=== PATIENT | male | born 1960 | race Caucasian/White ===

== ENCOUNTER → 2017-05-25 | Outpatient (CLI) | payer BC ==
[2017-05-25 07:36] LABS: Basophils % (A) 1 %; Eosinophils # (A) 0.2 k/uL (0-0.7); Eosinophils % (A) 2 %; HCT 43.6 % (39.0-53.0); HGB 14.4 gm/dL (13.0-17.5); Lymphocytes # (A) 1.7 k/uL (1.0-4.8); Lymphocytes % (A) 28 %; MCH 31.1 pg (25.0-35.0); MCHC 33.1 g/dL (31.0-37.0); MCV 94.2 fL (80.0-100.0); Mean Platelet Volume 7.7; Monocytes # (A) 0.3 k/uL (0-1.0); Monocytes % (A) 5 %; Neutrophils # (A) 3.8 k/uL (1.3-7.7); Neutrophils % (A) 62 %; Platelet Count 267 k/uL (150-450); RBC 4.63 m/uL (4.30-5.90); RDW 13.5 % (11.5-15.5); WBC 6.1 k/uL (3.8-10.6)
[2017-05-25 10:43] LABS: ALT 26 U/L (21-72); AST 23 U/L (17-59); Albumin 4.2 g/dL (3.5-5.0); Alkaline Phosphatase 106 U/L (38-126); Anion Gap 12 mmol/L; Blood Urea Nitrogen 15 mg/dL (9-20); Calcium 9.8 mg/dL (8.4-10.2); Carbon Dioxide 27 mmol/L (22-30); Chloride 107 mmol/L (98-107); Cholesterol 190 mg/dL (<200); Glucose 93 mg/dL (74-99); HDL Cholesterol 59 mg/dL (40-60); LDL Cholesterol,Calculated 117 mg/dL (0-99); Potassium 4.8 mmol/L (3.5-5.1); Sodium 146 mmol/L (137-145); Total Bilirubin 0.4 mg/dL (0.2-1.3); Total Protein 7.1 g/dL (6.3-8.2); Triglycerides 71 mg/dL (<150)
[2017-05-25 11:13] LABS: Prostate Specific Antigen 1.74 ng/mL (0.00-4.00)
== END | disposition home or self-care (01) ==
LOC: LABWHC1 06:56
PROVIDERS: ATTEND Family Medicine
DX: Z00.00 Encounter for general adult medical examination without abnormal findings (principal); Z13.21 Encounter for screening for nutritional disorder; Z12.5 Encounter for screening for malignant neoplasm of prostate
CPT/HCPCS: 36415; 80053; 80061; 82306; 84153; 84443; 85025

== ENCOUNTER 2018-03-18 08:32 | Day surgery (SDC) | payer BC ==
[2018-03-16 10:26] VITALS: BMI 26.9
[~2018-03-18 08:32] MED LIST: LACTATED RINGERS 1,000 ML IV SCH
[2018-03-18 08:56] VITALS: RESP 18; TEMP 97.3
[2018-03-18] MEDS ORDERED: LIDOCAINE 1% 20 ML VIAL (10MG/ML) FOR IV START INTRADERMA ONE (08:56)
[2018-03-18] MEDS ORDERED: PROPOFOL 10 MG/ML 20 ML VIAL IV ONE (09:26)
--- NOTE | 2018-03-18 09:30 | P.GSHP ---
History of Present Illness H&P Date: 03/18/18 Chief Complaint: Colon cancer screening Patient here today for colonoscopy. He has a history of colon polyps. Last colonoscopy about 12 years ago. No bowel related complaints currently. No history of the family colon cancer. Past Medical History Additional Past Medical History / Comment(s): HEMORRHOIDS. History of Any Multi-Drug Resistant Organisms: None Reported Additional Past Surgical History / Comment(s): COLONOSCOPY. CERVICAL RECONSTRUCTION 2006. Past Anesthesia/Blood Transfusion Reactions: No Reported Reaction Smoking Status: Former smoker Past Alcohol Use History: Occasional Additional Past Alcohol Use History / Comment(s): SMOKED 15 YEARS, 1 PPD, QUIT . Past Drug Use History: None Reported - Past Family History Sister(s) Additional Family Medical History / Comment(s): HAD MASTECTOMY, HAD POS CA GENE , ? CA Medications and Allergies Home Medications Medication Instructions Recorded Confirmed Type No Known Home Medications 03/16/18 03/16/18 History Allergies Allergy/AdvReac Type Severity Reaction Status Date / Time No Known Allergies Allergy Verified 03/16/18 10:13 Surgical - Exam Vital Signs Temp Pulse Resp BP Pulse Ox 97.3 F L 70 18 147/78 97 03/18/18 08:54 03/18/18 08:54 03/18/18 08:54 03/18/18 08:54 03/18/18 08:54 Physical exam: General: Well-developed, well-nourished HEENT: Normocephalic, sclerae nonicteric Abdomen: Nontender, nondistended Extremities: No edema Neuro: Alert and oriented Assessment and Plan (1) Colon cancer screening Narrative/Plan: Will proceed with colonoscopy at this time Current Visit: Yes Status: Acute Code(s): Z12.11 - ENCOUNTER FOR SCREENING FOR MALIGNANT NEOPLASM OF COLON SNOMED Code(s): 229683634
--- NOTE | 2018-03-18 09:46 | P.PCN ---
Date of Procedure: 03/18/18 Procedure(s) Performed: PREOPERATIVE DIAGNOSIS: Colon cancer screening POSTOPERATIVE DIAGNOSIS: Normal exam PROCEDURE: Colonoscopy ANESTHESIA: MAC SURGEON: Oswald Franco M.D. SPECIMENS: None ENDOSCOPIC PROCEDURE: The patient was placed on the endoscopy table in the left decubitus position. The Olympus colonoscope was inserted into the anus and passed under direct visualization to the base of the cecum. The appendiceal orifice was visualized. From that point the scope was slowly withdrawn inspecting all surfaces carefully. There were no neoplastic inflammatory or polypoid lesions throughout the cecum, ascending, transverse, descending, sigmoid and rectum. There was no diverticulosis noted. Digital rectal examination was normal. The patient was taken to the recovery room in stable condition per anesthesia guidelines. RECOMMENDATIONS: Increase fiber. Follow-up colonoscopy 5-10 years.
[2018-03-18 10:36] VITALS: BP 112/71; PULSE 49
== END 2018-03-18 10:47 | disposition home or self-care (01) ==
LOC: ORWHC2ENDO 08:32
PROVIDERS: ATTEND Surgery
DX: Z12.11 Encounter for screening for malignant neoplasm of colon (principal); Z86.010 Personal history of colon polyps; Z87.891 Personal history of nicotine dependence
CPT/HCPCS: J2704; G0105; 45378

== ENCOUNTER 2018-05-29 16:39 | Emergency (ER) | payer BC ==
[2018-05-29 16:49] VITALS: TEMP 97.4
[2018-05-29] MEDS ORDERED: DIPH,PERTUS(ACELL)TETVAC-LF 0.5 ML VIAL IM ONE (16:58)
[2018-05-29] MEDS ORDERED: LIDOCAINE 1%-EPI 1:100,000 20 ML VIAL SQ STA (16:58)
--- NOTE | 2018-05-29 17:04 | ED ---
General Adult HPI - General Chief complaint: Wound/Laceration Stated complaint: Hand Lac Time Seen by Provider: 05/29/18 16:51 Source: patient Mode of arrival: wheelchair Limitations: no limitations - History of Present Illness Initial comments: Dictation was produced using [employer] dictation software. please excuse any grammatical, word or spelling errors. Chief Complaint: 57-year-old male presents with left hand laceration. History of Present Illness: Approximately 2 hours prior to arrival patient was working at home when he was trying to remove a metal plate from the wall. He states that the platelet sharp advised twisting it is sliced his left hand. On his way here patient had an episode of syncope. Patient denies any medical comorbidities. He does not remember when his last tetanus shot was. The ROS documented in this emergency department record has been reviewed and confirmed by me. Those systems with pertinent positive or negative responses have been documented in the HPI. All other systems are other negative and/or noncontributory. PHYSICAL EXAM: General Impression: Alert and oriented x3, not in acute distress HEENT: Normocephalic atraumatic, extra-ocular movements intact, pupils equal and reactive to light bilaterally, mucous membranes moist. Cardiovascular: Heart regular rate and rhythm, S1&S2 audible, no murmurs, rubs or gallops Chest: Lungs clear to auscultation bilaterally, no rhonchi, no wheeze, no rales Abdomen: Bowel sounds present, abdomen soft, non-tender, non-distended, no organomegaly Musculoskeletal: Pulses present and equal in all extremities, no peripheral edema Motor: no focal deficits noted Neurological: CN II-XII grossly intact, no focal motor or sensory deficits noted Skin: Intact with no visualized rashes Psych: Normal affect and mood Left hand: 6 cm laceration to the palm of the left hand extending from thumb to fifth digit, mild bleeding. ED course: 54-year-old male presents with left hand laceration. As upon arrival are within acceptable limits. Tetanus updated. X-rays obtained showing no acute processes. No foreign bodies. Laceration was repaired at bedside using lidocaine without epi. Patient tolerated procedures well. Instructed to keep sutures in for approximately 10-14 days. Told to return if he develops any signs of infection including worsening pain and redness or constitutional symptoms. Patient was sent with plan. Patient's episode of syncope likely related to vasovagal syncope she was monitored in the emergency department with library monitor showing no acute processes. Patient has no medical history. Patient advised to follow-up with PCP for syncope workup. - Related Data Home Medications Medication Instructions Recorded Confirmed No Known Home Medications 03/16/18 05/29/18 Allergies Allergy/AdvReac Type Severity Reaction Status Date / Time ampicillin Allergy Rash/Hives Verified 05/29/18 17:01 Review of Systems ROS Statement: Those systems with pertinent positive or pertinent negative responses have been documented in the HPI. ROS Other: All systems not noted in ROS Statement are negative. Past Medical History Additional Past Medical History / Comment(s): HEMORRHOIDS. History of Any Multi-Drug Resistant Organisms: None Reported Additional Past Surgical History / Comment(s): COLONOSCOPY. CERVICAL RECONSTRUCTION 2006. Past Anesthesia/Blood Transfusion Reactions: No Reported Reaction Smoking Status: Former smoker Past Alcohol Use History: Occasional Past Drug Use History: None Reported - Past Family History Sister(s) Additional Family Medical History / Comment(s): HAD MASTECTOMY, HAD POS CA GENE, ? CA General Exam Limitations: no limitations Course Vital Signs 05/29/18 16:47 Temperature 97.4 F L Pulse Rate 51 L Respiratory 18 Rate Blood Pressure 69/30 O2 Sat by Pulse 98 Oximetry Procedures - Laceration Laceration #1 Consent Obtained: verbal consent Indication: laceration Site: hand Description: linear Depth: simple, single layer Anesthetic Used: lidocaine 1% Anesthesia Technique: local infiltration Type of Sutures: nylon Size of Sutures: 4-0 Technique: simple, interrupted Patient Tolerated Procedure: well Disposition Clinical Impression: Laceration, Vasovagal syncope Disposition: HOME SELF-CARE Condition: Good Instructions (If sedation given, give patient instructions): Laceration (ED) Is patient prescribed a controlled substance at d/c from ED?: No Referrals: Andrade Hayes MD [Primary Care Provider] - 1-2 days Time of Disposition: 17:40
--- NOTE | 2018-05-29 17:31 | XR ---
Left hand HISTORY: Laceration 3 views of the left hand Bone mineralization, joint spaces and alignment are maintained. No fracture or dislocation. No radiop aque foreign body. IMPRESSION: No acute abnormalities evident
[2018-05-29 17:48] VITALS: BP 106/71; PULSE 56; RESP 16
[2018-05-29] MEDS ORDERED: Acetaminophen-Codeine 300-30mg TAB PO STA (17:48)
== END 2018-05-29 17:55 | disposition home or self-care (01) ==
LOC: EC 16:39
DX: S61.412A Laceration without foreign body of left hand, initial encounter (principal); Z23 Encounter for immunization; Z88.1 Allergy status to other antibiotic agents; Z87.891 Personal history of nicotine dependence; W26.8XXA Contact with other sharp object(s), not elsewhere classified, initial encounter
CPT/HCPCS: 12002; 90471; 90715; 99283

== ENCOUNTER → 2020-10-19 | Outpatient (CLI) | payer BC ==
--- NOTE | 2020-10-19 21:50 | MR ---
EXAMINATION TYPE: MR shoulder RT wo con DATE OF EXAM: 10/19/2020 COMPARISON: None HISTORY: Right shoulder pain x 3 years. Multiplanar multiecho imaging of the right shoulder with no contrast. The subscapularis tendon is intact. Biceps tendon appears intact. The glenoid dennis appear fairly nor mal. The supraspinatus tendon is intact. There is no retraction. I see no bony destructive process. Tita l head is intact. Glenohumeral joint appears anatomic. There is no subacromial impingement. IMPRESSION: Normal MR scan of the right shoulder. No evidence of rotator cuff tear.
== END | disposition home or self-care (01) ==
LOC: RADMRIMAIN 14:16
PROVIDERS: ATTEND Orthopaedic Surgery
DX: M25.511 Pain in right shoulder (principal)

== ENCOUNTER 2021-01-14 08:16 | Day surgery (SDC) | payer BC ==
[2021-01-09 14:38] VITALS: BMI 25.6
[~2021-01-14 08:16] MED LIST changes: +LIDOCAINE 1% (10MG/ML) FOR IV START INTRADERMA PRN
[2021-01-14] MEDS ORDERED: LACTATED RINGERS 1,000 ML IV ONE (08:45)
[2021-01-14 08:59] VITALS: TEMP 97.8
[2021-01-14] MEDS ORDERED: PROPOFOL 10 MG/ML 20 ML VIAL IV ONE (09:28)
[2021-01-14] MEDS ORDERED: LIDOCAINE 1% INJ 10MG/ML (20 ML MDV) ONE (09:28)
--- NOTE | 2021-01-14 09:34 | P.GSHP ---
History of Present Illness H&P Date: 01/14/21 Chief Complaint: Rectal bleeding 60-year-old male here today for colonoscopy with possible hemorrhoidal banding. Patient with frequent rectal bleeding. He feels a hemorrhoid that self reduces. Usually on the right-hand side. Last colonoscopy 3 years ago. No constipation . Past Medical History Additional Past Medical History / Comment(s): HEMORRHOIDS. History of Any Multi-Drug Resistant Organisms: None Reported Additional Past Surgical History / Comment(s): COLONOSCOPY. CERVICAL RECONSTRUCTION 2006. Past Anesthesia/Blood Transfusion Reactions: No Reported Reaction Smoking Status: Former smoker - Past Family History Sister(s) Additional Family Medical History / Comment(s): HAD MASTECTOMY, HAD POS CA GENE, ? CA Medications and Allergies Home Medications Medication Instructions Recorded Confirmed Type No Known Home Medications 03/16/18 01/09/21 History Allergies Allergy/AdvReac Type Severity Reaction Status Date / Time amoxicillin Allergy Rash/Hives Verified 01/09/21 14:32 ampicillin Allergy Rash/Hives Verified 01/09/21 14:32 Surgical - Exam Vital Signs Temp Pulse Resp BP Pulse Ox 97.8 F 78 18 137/78 98 01/14/21 08:58 01/14/21 08:58 01/14/21 08:58 01/14/21 08:58 01/14/21 08:58 Physical exam: General: Well-developed, well-nourished HEENT: Normocephalic, sclerae nonicteric Abdomen: Nontender, nondistended Extremities: No edema Neuro: Alert and oriented Assessment and Plan (1) Rectal bleeding Narrative/Plan: Will proceed with colonoscopy with possible hemorrhoidal banding. Risks of bleeding, infection, scarring, recurrence reviewed. Patient understands and wishes to proceed. Current Visit: Yes Status: Acute Code(s): K62.5 - HEMORRHAGE OF ANUS AND RECTUM SNOMED Code(s): 23311275
--- NOTE | 2021-01-14 09:53 | P.PCN ---
Date of Procedure: 01/14/21 Procedure(s) Performed: PREOPERATIVE DIAGNOSIS: Rectal bleeding POSTOPERATIVE DIAGNOSIS: Diverticulosis, internal hemorrhoids PROCEDURE: Colonoscopy, anoscopy with hemorrhoidal banding ANESTHESIA: MAC SURGEON: Oswald Franco M.D. SPECIMENS: None ENDOSCOPIC PROCEDURE: The patient was placed on the endoscopy table in the left decubitus position. The Olympus colonoscope was inserted into the anus and passed under direct visualization to the base of the cecum. The appendiceal orifice was visualized. From that point the scope was slowly withdrawn inspecting all surfaces carefully. There were no neoplastic inflammatory or polypoid lesions throughout the cecum, ascending, transverse, descending, sigm oid and rectum. There was mild left-sided diverticulosis noted. The patient had evidence of a prolapsing left internal hemorrhoids. He had other smaller hemorrhoids as well but the largest one seen on anoscopy was in the left location laterally. Using the rubber band ligation with suction the prominent hemorrhoid was ligated. The patient was taken to the recovery room in stable condition per anesthesia guidelines. RECOMMENDATIONS: Resume diet. Increase dietary fiber. Follow-up colonoscopy 10 years. Patient may require additional hemorrhoidal banding based on symptoms.
[2021-01-14 10:19] VITALS: BP 107/72; PULSE 60; RESP 1
== END 2021-01-14 10:51 | disposition home or self-care (01) ==
LOC: ORWHC2ENDO 08:16
PROVIDERS: ATTEND Surgery
DX: K64.8 Other hemorrhoids (principal); K57.30 Diverticulosis of large intestine without perforation or abscess without bleeding; Z87.891 Personal history of nicotine dependence; Z88.0 Allergy status to penicillin; Z98.1 Arthrodesis status; Z98.52 Vasectomy status
CPT/HCPCS: 45398; J2001; J2704

== ENCOUNTER → 2021-04-15 | Outpatient (CLI) | payer BC ==
[2021-04-16 01:05] LABS: Anion Gap 10.1 mmol/L (10.00-18.00); Carbon Dioxide 25.4 mmol/L (20.0-27.5); Potassium 4.6 mmol/L (3.5-5.5)
[2021-04-16 01:53] LABS: Basophils # (A) 0.04 X 10*3/uL (0.00-0.10); Basophils % (A) 0.8 %; Eosinophils # (A) 0.12 X 10*3/uL (0.04-0.35); Eosinophils % (A) 2.3 %; HCT 43.5 % (39.6-50.0); HGB 14.3 g/dL (13.0-17.0); Immature Grans, Automated 0.4 %; Lymphocytes # (A) 1.83 X 10*3/uL (0.90-5.00); Lymphocytes % (A) 34.9 %; MCH 32.9 pg (27.0-32.0); MCHC 32.9 g/dL (32.0-37.0); MCV 100.2 fL (80.0-97.0); Mean Platelet Volume 10.7 fL (9.5-12.2); Monocytes # (A) 0.42 X 10*3/uL (0.20-1.00); NRBC Per 100 WBC 0 /100 WBCS (0.0-0.0); Neutrophils # (A) 2.81 X 10*3/uL (1.80-7.70); Neutrophils % (A) 53.6 %; Platelet Count 235 X 10*3/uL (140-440); RBC 4.34 X 10*6/uL (4.40-5.60); RDW 12.4 % (11.5-14.5); WBC 5.24 X 10*3/uL (4.50-10.00)
== END | disposition home or self-care (01) ==
LOC: LABPAT 16:20
PROVIDERS: ATTEND Orthopaedic Surgery
DX: M75.41 Impingement syndrome of right shoulder (principal)
CPT/HCPCS: 36415; 80051; 85025; 93005

== ENCOUNTER 2021-04-30 05:48 | Day surgery (SDC) | payer BC ==
[2021-04-29 09:01] VITALS: BMI 27.0
--- NOTE | 2021-04-29 13:47 | HP ---
HISTORY AND PHYSICAL REASON FOR ADMISSION: Surgery scheduled for 04/30/2021 HISTORY OF PRESENT ILLNESS: Aayush Calix is a 60-year-old patient seen with progressive right shoulder pain. Options for treatment were discussed with him. He elected to proceed with right shoulder arthroscopy. Consent was obtained. PAST MEDICAL HISTORY: Noncontributory. PAST SURGICAL HISTORY: Vasectomy, cervical fusion. MEDICATIONS: Daily medications are: Advil, Tylenol. ALLERGIES: AMOXICILLIN. SOCIAL HISTORY: Denies current tobacco use. PHYSICAL EVALUATION OF THE RIGHT SHOULDER: Flexion is 130 degrees. Abduction is 90 degrees. External rotation is 40 degrees. Some pain and weakness. There is tenderness along the anterolateral acromion rotator cuff insertion site. Impingement sign is positive 80 degrees. Cross-body adduction sign is positive. Drop-arm sign is positive. Distal neurovascular exam is intact. RADIOGRAPHS: Right shoulder radiographs revealed a type 2 acromion, evidence for acromioclavicular joint osteoarthritis and cystic changes of the greater tuberosity. MRI right shoulder failed to reveal any osseus abnormality. IMPRESSION: 1. Right shoulder impingement with possible rotator cuff tear. 2. Right shoulder acromioclavicular joint osteoarthritis. PLAN: Right shoulder arthroscopy with subacromial decompression, Eleni procedure, possible arthroscopic rotator cuff repair and debridement. Surgery 04/30/2021. MMODL / IJN: [id number] /
[2021-04-30] MEDS ORDERED: DEXAMETHASONE SOD PHOSPHATE 4 MG/ML 1 ML VIAL IV ONE (06:17)
[2021-04-30] MEDS ORDERED: ONDANSETRON 4 MG/2 ML VIAL IVP ONE (06:17)
[2021-04-30] MEDS ORDERED: LACTATED RINGERS 1,000 ML IV SCH (06:17)
[2021-04-30] MEDS ORDERED: MIDAZOLAM 2 MG/2 ML VIAL IV PRN (06:17)
[2021-04-30] MEDS ORDERED: LIDOCAINE 1% (10MG/ML) FOR IV START INTRADERMA PRN (06:17)
[2021-04-30 06:32] VITALS: RESP 16; TEMP 97.4
[2021-04-30] MEDS ORDERED: HYDROmorphone 0.5 MG/0.5 ML SYRINGE IVP PRN (07:00)
[2021-04-30] MEDS ORDERED: ROCURONIUM 10 MG/ML (5 ML VIAL) IV ONE (07:25)
[2021-04-30] MEDS ORDERED: PROPOFOL 10 MG/ML 20 ML VIAL IV ONE (07:25)
[2021-04-30] MEDS ORDERED: SUCCINYLCHOLINE CHLORIDE 100 MG/5 ML SYR IV ONE (07:25)
[2021-04-30] MEDS ORDERED: LIDOCAINE 1% INJ 10MG/ML (20 ML MDV) ONE (07:25)
[2021-04-30] MEDS ORDERED: GLYCOPYRROLATE 0.2 MG/ML 2 ML VIAL ONE (07:25)
[2021-04-30] MEDS ORDERED: fentaNYL (PF) 50 MCG/ML 2 ML AMP ONE (07:25)
[2021-04-30] MEDS ORDERED: DEXAMETHASONE SOD PHOSPHATE 4 MG/ML 1 ML VIAL ONE (07:25)
[2021-04-30] MEDS ORDERED: ePHEDrine 50 MG/ML 1 ML VIAL ONE (07:25)
[2021-04-30] MEDS ORDERED: ROPIVACAINE 5 MG/ML 30 ML VIAL ONE (07:25)
[2021-04-30] MEDS ORDERED: NEOSTIGMINE 1 MG/ML 10 ML VIAL ONE (07:25)
[2021-04-30] MEDS ORDERED: LACTATED RINGERS 1,000 ML IV ONE (08:26)
--- NOTE | 2021-04-30 09:08 | P.OP ---
Date of Procedure: 04/30/21 Preoperative Diagnosis: Right shoulder impingement Postoperative Diagnosis: 1. Right shoulder rotator cuff tear 2. Right shoulder acromioclavicular joint osteoarthritis 3. Right shoulder impingement Procedure(s) Performed: 1. Right shoulder arthroscopic rotator cuff repair 2. Right shoulder arthroscopic Eleni procedure 3. Right shoulder arthroscopic subacromial decompression Implants: 14.75 Arthrex swivel lock anchor Anesthesia: GETA, regional (Interscalene block) Surgeon: Bear Lobato Diabetes Territory Manager #1: Jose Cobb Estimated Blood Loss (ml): 9 Pathology: none sent Condition: stable Disposition: PACU Indications for Procedure: 60-year-old gentleman seen with progressive right shoulder pain. After treatment options were discussed, he elected to proceed with arthroscopy. Operative Findings: see description of procedure Description of Procedure: Patient underwent an interscalene block by department of anesthesia. The patient was then taken to the operative suite. The patient underwent a general anesthetic by the department of anesthesia. The patient was placed into a lateral position and secured. There was appropriate padding of the bony prominence. Right shoulder was then prepped and draped in normal sterile orthopedic fashion. We placed the extremity in 10 pounds of longitudinal traction. A posterior incision was now made for a posterior working portal site. The trocar and cannula were inserted into the glenohumeral joint. Arthroscopy was initiated. Spinal needle was now inserted anteriorly, to ascertain the anterior working portal site. An incision was now made in that area, a trocar was inserted followed by a probe. The glenohumeral joint appeared unremarkable with no evidence of any significant chondromalacia. The labrum was stable. The biceps tendon and anchor were both stable. Instruments were now removed from glenohumeral joint. Utilizing the posterior working portal site, the trocar and cannula were inser kyree into the subacromial space. Arthroscopy initiated. I made an incision 2 fingerbreadths lateral to the acromion. I introduced my trocar followed by my [employer]Care ablator. I now began ablating thick subacromial bursal tissue, which exposed the undersurface of the anterior acromion. There was diminished subacromial space. There was a very prominent anterior acromion. A motorized bur was introduced and a subacromial decompression was performed. I also excised some osteophytes off the inferior aspect of the distal clavicle. The AC joint was visualized and noted to be fairly arthritic. The motorized bur was introduced in the anterior portal site and a Eleni procedure was performed without difficulty, decompressing the AC joint nicely. I turned my attention to the rotator cuff. There was some significant partial tearing along the mid supraspinatus tendon area. Upon probing the area was a full-thickness perforation present. I debrided the margins getting down to stable tendon tissue. The defect measured approximately 1.5 cm and was freely mobile over the footprint. I abraded the footprint with a motorized bur. With the assistance of Isiah SHI I now passed 3 everted mattress sutures bites of rotator cuff tendon. I now punched a hole in the footprint area for insertion of an anchor. With the assistance of Isiah SHI we pasted all 6 limbs of suture through the eyelet of a 4.75 swivel lock anchor. I now placed the eyelet into the pre- punched hole. I held it in position while Isiah SHI tensioned all 6 suture limbs and deployed the anchor with good fixation noted. All residual suture limbs were now clipped. We had good compression of the tendon along the entire footprint. Instruments now removed from the portal sites. All portal sites were approximated with nylon suture. Sterile dressings were applied followed by a shoulder sling. Jose SHI assisted in this complex case. The patient was awakened, transferred to a bed, and taken to recovery in stable condition.
[2021-04-30 10:24] VITALS: BP 131/83; PULSE 57
--- NOTE | 2021-05-01 10:55 | P.ANPRN ---
Procedure Note - Anesthesia - Nerve Block Performed Right Interscalene Single Time Out Performed: Yes Date of Procedure: 04/30/21 Procedure Start Time: : Procedure Stop Time: :07 Location of Patient: PreOp Indication: Analgesia, Requested by Surgeon Sedation Type: Sedate with meaningful contact maintained Preparation: Sterile Prep Position: Supine Needle Types: Pajunk Needle Gauge: 21 Ultrasound used to visualize needle placement: Yes Ultrasound used to observe medication spread: Yes Blood Aspirated: No Pain Paresthesia on Injection Noted: No Resistance on Injection: Normal Image Stored and Saved: Yes Events: Uneventful and Well Tolerated (ropi .5% 25cc plus dexamethasone 4mg)
== END 2021-04-30 10:46 | disposition home or self-care (01) ==
LOC: OR 05:48
PROVIDERS: ATTEND Orthopaedic Surgery
DX: M75.101 Unspecified rotator cuff tear or rupture of right shoulder, not specified as traumatic (principal); M25.711 Osteophyte, right shoulder; M19.011 Primary osteoarthritis, right shoulder; M25.811 Other specified joint disorders, right shoulder; Z98.1 Arthrodesis status; Z98.52 Vasectomy status; Z87.09 Personal history of other diseases of the respiratory system; Z79.899 Other long term (current) drug therapy; Z79.1 Long term (current) use of non-steroidal anti-inflammatories (NSAID); Z88.0 Allergy status to penicillin
CPT/HCPCS: 64415; 76942; 29826; 29827; 29824; C1713; J2250; J1100; J2710; J0690; J2405; J2001; J3010; J2795; J0330; J2704

== ENCOUNTER → 2021-09-01 | Outpatient (CLI) | payer BC ==
--- NOTE | 2021-09-02 03:38 | MR ---
EXAMINATION TYPE: MR knee RT wo con DATE OF EXAM: 09/01/2021 COMPARISON: None HISTORY: Right knee pain Multiplanar multiecho imaging of the right knee with no contrast. The anterior and posterior cruciate ligaments are intact. There is need joint effusion. The lateral c ollateral ligament appears intact. There is some edema on the medial aspect of the knee and slight in creased fluid signal around the medial collateral ligament. No full thickness tear. Lateral meniscus is intact. There is horizontal tear through the posterior horn of the medial meniscu s extending to the inferior surface. The patella is intact. No fracture seen. IMPRESSION: Knee joint effusion. Partial tear of the medial collateral ligament. Medial subcutaneous edema. Horizontal tear through the posterior horn of the medial meniscus. No fracture seen.
== END | disposition home or self-care (01) ==
LOC: RADMRIMAIN 18:55
PROVIDERS: ATTEND Orthopaedic Surgery
DX: S83.411A Sprain of medial collateral ligament of right knee, initial encounter (principal); M25.461 Effusion, right knee; X58.XXXA Exposure to other specified factors, initial encounter

== ENCOUNTER → 2021-10-31 | Outpatient (CLI) | payer BC ==
[2021-10-31 18:17] LABS: Anion Gap 9.5 mmol/L (10.00-18.00); Carbon Dioxide 26.3 mmol/L (20.0-27.5); Potassium 5.5 mmol/L (3.5-5.5)
[2021-10-31 18:22] LABS: Basophils # (A) 0.04 X 10*3/uL (0.00-0.10); Basophils % (A) 0.6 %; Eosinophils # (A) 0.12 X 10*3/uL (0.04-0.35); Eosinophils % (A) 1.7 %; HGB 14.8 g/dL (13.0-17.0); Immature Grans, Automated 0.4 %; Lymphocytes # (A) 1.34 X 10*3/uL (0.90-5.00); Lymphocytes % (A) 19.1 %; MCH 32.7 pg (27.0-32.0); MCHC 32.9 g/dL (32.0-37.0); MCV 99.6 fL (80.0-97.0); Mean Platelet Volume 10.5 fL (9.5-12.2); Monocytes % (A) 5.7 %; NRBC Per 100 WBC 0 /100 WBCS (0.0-0.0); Neutrophils # (A) 5.07 X 10*3/uL (1.80-7.70); Neutrophils % (A) 72.5 %; Platelet Count 278 X 10*3/uL (140-440); RBC 4.52 X 10*6/uL (4.40-5.60); RDW 12.2 % (11.5-14.5)
== END | disposition home or self-care (01) ==
LOC: LABPAT 10:38
PROVIDERS: ATTEND Orthopaedic Surgery
DX: Z01.812 Encounter for preprocedural laboratory examination (principal); M23.91 Unspecified internal derangement of right knee
CPT/HCPCS: 36415; 80051; 85025

== ENCOUNTER 2021-11-13 11:21 | Day surgery (SDC) | payer BC ==
--- NOTE | 2021-11-13 02:18 | HP ---
HISTORY AND PHYSICAL DATE OF SURGERY: 11/13/2021 HISTORY OF PRESENT ILLNESS: Aayush Calix is a 61-year-old patient, seen with progressive right knee pain. We discussed options for treatment. He elected to proceed with right knee arthroscopy. Consent was obtained. PAST MEDICAL HISTORY: Noncontributory. SURGICAL HISTORY: Cervical fusion and vasectomy. DAILY MEDICATION: Naprosyn. ALLERGIES: Amoxicillin. SOCIAL HISTORY: Denies current tobacco use. PHYSICAL EVALUATION OF THE RIGHT KNEE: Range of motion is negative 3 to 110 degrees. There is a mild to moderate effusion present. He has tenderness along the medial joint line. Positive medial Makenna's. He has a +1/2 Hernesto's. Pivot shift is negative. Distal neurovascular exam is intact. RADIOGRAPHS: Radiographs of the right knee revealed a mild osteoarthritis. MRI of the right knee revealed medial meniscal tear and effusion. IMPRESSION: Internal derangement of the right knee with medial meniscal tear. PLAN: Right knee arthroscopy with partial medial meniscectomy and debridement. MMODL / IJN: [id number] /
[~2021-11-13 11:21] MED LIST changes: +DEXAMETHASONE SOD PHOSPHATE 4 MG/ML 1 ML VIAL IV ONE; -LIDOCAINE 1% (10MG/ML) FOR IV START INTRADERMA PRN; +ONDANSETRON 4 MG/2 ML VIAL IVP ONE
--- NOTE | 2021-11-13 12:30 | P.ANPRN ---
Procedure Note - Anesthesia - Nerve Block Performed Left Interscalene Single Time Out Performed: Yes (1040) Date of Procedure: 11/13/21 Procedure Start Time: 10:41 Procedure Stop Time: 10:48 Location of Patient: PreOp Indication: Acute Post-Operative Pain, Requested by Surgeon Specifically requested for management of pain by DrRicky: Bear Lobato Sedation Type: Sedate with meaningful contact maintained Preparation: Sterile Prep Position: Supine Catheter: None Needle Types: Pajunk Needle Gauge: 21 Ultrasound used to visualize needle placement: Yes Ultrasound used to observe medication spread: Yes Injectate: 0.5% Ropivacaine (see comment for volume) (30cc) Blood Aspirated: No Pain Paresthesia on Injection Noted: No Resistance on Injection: Normal Image Stored and Saved: Yes Events: Uneventful and Well Tolerated
[2021-11-13] MEDS ORDERED: LIDOCAINE 2% INJ 20 MG/ML (2 ML VIAL) ONE (13:07)
[2021-11-13] MEDS ORDERED: PROPOFOL 10 MG/ML 20 ML VIAL IV ONE (13:07)
[2021-11-13] MEDS ORDERED: fentaNYL (PF) 50 MCG/ML 2 ML AMP ONE (13:07)
[2021-11-13] MEDS ORDERED: MIDAZOLAM 2 MG/2 ML VIAL ONE (13:07)
[2021-11-13] MEDS ORDERED: BUPIVACAINE (PF) 0.25% 30 ML VIAL SQ ONE ×2 (13:18→13:40)
[2021-11-13] MEDS ORDERED: LACTATED RINGERS 1,000 ML IV ONE (13:39)
--- NOTE | 2021-11-13 13:55 | P.OP ---
Date of Procedure: 11/13/21 Preoperative Diagnosis: Internal derangement right knee Postoperative Diagnosis: 1. Tear medial meniscus right knee 2. Grade 2/3 chondromalacia medial femoral condyle right knee 3. Reactive synovitis medial, lateral and suprapatellar compartments right knee Procedure(s) Performed: 1. Arthroscopic partial medial meniscectomy right knee 2. Arthroscopic chondroplasty medial femoral condyle right knee 3. Arthroscopic partial synovectomy medial, lateral and suprapatellar compartments right knee Anesthesia: MELISSAA, local Surgeon: Bear Lobato Estimated Blood Loss (ml): 7 Pathology: none sent Condition: stable Disposition: PACU Indications for Procedure: 61-year-old patient seen with progressive right knee pain. After having treatment options discussed, he elected to proceed with arthroscopy. Operative Findings: See description of procedure Description of Procedure: Patient was taken to the operative suite. Patient underwent a general anesthetic by the department of anesthesia. Patient was given preoperative antibiotics. The right lower extremity was placed in a well-padded arthroscopic leg lloyd. The right leg was prepped and draped in the normal sterile orthopedic fashion. A lateral parapatellar and suprapatellar incision was made. Trochars were inserted. Arthroscopy was initiated. Suprapatellar pouch revealed diffuse thick reactive synovitis. The patellofemoral joint appeared articulate congruently. There was grade 1 chondromalacia with no evidence for osteochondral tears. The scope was guided into the medial gutter. No loose bodies or plica were identified. The scope was then guided into the medial compartment. A medial parapatellar incision was made. Trocar inserted followed by probe. There was a complex tear involving the posterior horn of the medial meniscus. There were grade 2/3 chondromalacia changes of the medial femoral condyle with some osteochondral tears present. There was some thick reactive synovitis anteriorly. I performed a partial medial meniscectomy getting down to stable meniscal tissue. I performed a partial synovectomy decompressing the reactive synovitis. The residual meniscus was probed and found to be stable. The residual osteochondral surface appeared stable. There was good decompression of the synovitis. Scope and probe were then guided into the intercondylar notch. Cruciates were identified, probed and found to be stable. The scope and probe were then guided into lateral compartment. Lateral meniscus was probed and was found to be stable. There was no significant chondromalacia. There was some thick reactive synovitis anteriorly. I introduced a motorized shaver and performed a partial synovectomy. Shaver was removed. There was good decompression of the synovitis. The scope was in guided back into the suprapatellar compartment. I introduced a motorized shaver into the super compartment. I debrided some piecemeal fragments of meniscus that I encountered. I performed a partial synovectomy. The shaver was removed. There was good decompression of the synovitis. I took one more look around the entire knee, no residual debris. Instruments were now removed from the joint. The joint was infiltrated with .25% Marcaine. Steri-Strips were applied to the portal sites. Sterile dressings were applied. The patient was placed into a VI hose. No tourniquet was utilized. The patient was awakened, transferred to a bed and taken to recovery stable satisfactory condition.
[2021-11-13 14:10] VITALS: TEMP 97
[2021-11-13] MEDS: HYDROmorphone 0.5 MG/0.5 ML SYRINGE IVP PRN ×2 (14:12→14:30)
[2021-11-13] MEDS ORDERED: KETOROLAC 15 MG/ML 1 ML VIAL IVP ONE (14:20)
[2021-11-13 15:10] VITALS: PULSE 53; RESP 20
[2021-11-13] MEDS ORDERED: HYDROcodone/APAP 5-325MG 1 EACH TAB ONE (15:16)
[2021-11-13] MEDS ORDERED: HYDROcodone/APAP 5-325MG 1 EACH TAB PO ONE (15:18)
[2021-11-13 15:44] VITALS: BP 122/73
== END 2021-11-13 16:18 | disposition home or self-care (01) ==
LOC: OR 11:21
PROVIDERS: ATTEND Orthopaedic Surgery
DX: M23.303 Other meniscus derangements, unspecified medial meniscus, right knee (principal); M94.261 Chondromalacia, right knee; M65.861 Other synovitis and tenosynovitis, right lower leg; G89.18 Other acute postprocedural pain; M17.11 Unilateral primary osteoarthritis, right knee; M25.461 Effusion, right knee; Z98.1 Arthrodesis status; Z98.52 Vasectomy status; Z79.1 Long term (current) use of non-steroidal anti-inflammatories (NSAID); Z88.0 Allergy status to penicillin; Z88.1 Allergy status to other antibiotic agents; Z87.891 Personal history of nicotine dependence
CPT/HCPCS: 29881; 64415; 76942; J2250; J1100; J0690; J2405; J3010; J1885; J2704; J1170; J2001

== ENCOUNTER → 2023-01-06 | Outpatient (CLI) | payer BC ==
--- NOTE | 2023-01-10 05:28 | MR ---
EXAMINATION TYPE: MR knee LT wo con DATE OF EXAM: 01/06/2023 COMPARISON: Outside bilateral knee x-rays December 29, 2022 HISTORY: Pain and swelling Left knee TECHNIQUE: Multiplanar, multisequence images of the knee is performed without IV contrast. FINDINGS: MEDIAL MENISCUS: Anterior and posterior horns are intact without tear. LATERAL MENISCUS: Anterior and posterior horns are intact without tear. CRUCIATE LIGAMENTS: The anterior and posterior cruciate ligaments are intact and unremarkable. COLLATERAL LIGAMENTS: The medial collateral ligament and lateral collateral ligament complex are inta ct and unremarkable. EXTENSOR MECHANISM: Visualized quadriceps and patellar tendons are intact. Bony projection anterior s uperior patella at the distal quadriceps tendon insertion. EFFUSION: No significant suprapatellar joint effusion. POPLITEAL CYST: No popliteal/rosales cyst. TRICOMPARTMENT SPACES: Chag-[id number]-[id number] tricompartment joint space loss without significant spurring. CARTILAGE: Tricompartmental articular cartilage is preserved. BONE MARROW SIGNAL: No focal abnormal marrow signal is appreciated. OTHER: No additional significant abnormality is appreciated. 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
== END | disposition home or self-care (01) ==
LOC: RADMRIMAIN 20:45
PROVIDERS: ATTEND Orthopaedic Surgery
DX: M17.12 Unilateral primary osteoarthritis, left knee (principal)

== ENCOUNTER → 2023-03-27 | Outpatient (CLI) | payer BC ==
[2023-03-27 13:22] LABS: HCT 43.3 % (39.6-50.0); HGB 14.5 g/dL (13.0-17.0); MCH 32.7 pg (27.0-32.0); MCHC 33.5 g/dL (32.0-37.0); MCV 97.5 FL (80.0-97.0); Mean Platelet Volume 11.1 FL (9.5-12.2); NRBC Per 100 WBC 0 X 10*3/uL (0.00-0.01); Platelet Count 246 X 10*3/uL (140-440); RBC 4.44 X 10*6/uL (4.40-5.60); RDW 11.9 % (11.5-14.5); WBC 4.03 X 10*3/uL (4.50-10.00)
[2023-03-27 13:47] LABS: ALT 21 U/L (10-49); AST 21 U/L (14-35); Albumin 4.2 g/dL (3.8-4.9); Albumin/Globulin Ratio 1.91 Ratio (1.60-3.17); Alkaline Phosphatase 106 U/L (41-126); BUN/Creat Ratio 15.78 Ratio (12.00-20.00); Blood Urea Nitrogen 14.2 mg/dL (9.0-27.0); Calcium 9.4 mg/dL (8.7-10.3); Carbon Dioxide 24.4 mmol/L (21.6-31.8); Chloride 107 mmol/L (96-109); Chol/HDL Ratio 3.18 Ratio; Globulin 2.2 g/dL (1.6-3.3); Glucose 99 mg/dL (70-110); LDL Cholesterol,Calculated 113.2 mg/dL (0.0-131.0); Potassium 4.5 mmol/L (3.5-5.5); Prostate Specific Antigen 2.58 ng/mL (0.000-4.500); Sodium 140 mmol/L (135-145); Total Bilirubin 0.5 mg/dL (0.3-1.2); Total Protein 6.4 g/dL (6.2-8.2); VLDL Calculation 8.88 mg/dL (5.00-40.00)
== END | disposition home or self-care (01) ==
LOC: LABWHC1 08:46
PROVIDERS: ATTEND Family Medicine
DX: Z00.00 Encounter for general adult medical examination without abnormal findings (principal)
CPT/HCPCS: 36415; 80053; 80061; 84153; 85027